=== PATIENT | male | born 1985 | race Caucasian/White ===

== ENCOUNTER 2019-01-09 18:02 | Emergency (ER) | payer BC ==
--- NOTE | 2019-01-09 19:33 | EDM.PDOC ---
ED HPI GENERAL MEDICAL PROBLEM - General Chief Complaint: Lower Extremity Injury/Pain Stated Complaint: RIGHT ANKLE/FOOT INJURY Time Seen by Provider: 01/09/19 18:18 Source of Information: Reports: Patient, RN Notes Reviewed - History of Present Illness INITIAL COMMENTS - FREE TEXT/NARRATIVE: 33-year-old male comes in with right distal lower leg discomfort and right ankle discomfort. This all started about 2 weeks ago. He had been running about 3 miles 3 times a week and doing fine. Than one evening he ran about 10 miles and then ran again the next day with subsequent onset of pain right lower leg, right ankle. That was about 2 weeks ago and he continues to have continued discomfort with walking, much more severe if he attempts to run. At rest that can be a mild ache but nothing real bothersome. No other acute injury other than repetitive stress that he can think of. 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 [No Known Home Meds] 01/09/19 [History] Past Medical History - Past Health History Medical/Surgical History: Denies Medical/Surgical History Social & Family History - Family History Family Medical History: Noncontributory - Tobacco Use Smoking Status *Q: Never Smoker Second Hand Smoke Exposure: No - Caffeine Use Caffeine Use: Reports: Coffee - Recreational Drug Use Recreational Drug Use: No Review of Systems - Review of Systems Review Of Systems: See Below Constitutional: Reports: No Symptoms Respiratory: Reports: No Symptoms Cardiovascular: Reports: No Symptoms GI/Abdominal: Reports: No Symptoms Musculoskeletal: Reports: Joint Pain (Pain right distal lower leg and right ankle) Skin: Reports: No Symptoms Neurological: Reports: No Symptoms ED EXAM, GENERAL - Physical Exam Exam: See Below General Appearance: Alert, No Apparent Distress Head: Atraumatic Neck: Supple Respiratory/Chest: No Respiratory Distress Extremities: Other (Very mild tenderness of the distal lower anterior and lateral leg, very mild tenderness right lateral ankle. Both swelling. Medial leg and ankle nontender. Foot totally nontender and without swelling.) Course - Vital Signs Last Recorded V/S: Last Vital Signs Temp 97.9 F 01/09/19 18:16 Pulse 55 L 06/22/19 18:16 Resp 14 01/09/19 18:16 BP 141/74 H 01/09/19 18:16 Pulse Ox 100 01/09/19 18:16 - Orders/Labs/Meds Orders: Active Orders 24 hr Category Date Time Status Tibia Fibula Rt [CR] Stat Exams 01/09/19 18:37 Taken Durable Medical Equipment for Discharge [DME for Oth 01/09/19 19:28 Ordered Discharge] [COMM] Stat Durable Medical Equipment for Discharge [DME for Oth 01/09/19 19:30 Ordered Discharge] [COMM] Stat - Re-Assessments/Exams Free Text/Narrative Re-Assessment/Exam: 01/09/19 19:37 X-rays of the leg do show mild increased density of the formerly close growth plate area right distal lateral tibia. This could possibly be a partially healed stress fracture. I discussed this possibility with patient. For now will have him use an Joo wrap and also put him on crutches. I will have him call the ED Friday when I am next working for radiology report. Departure - Departure Time of Disposition: 19:30 Disposition: Home, Self-Care 01 Condition: Fair Clinical Impression: Leg pain, right - Discharge Information Referrals: Malcolm Bartlett MD [Primary Care Provider] - Forms: ED Department Discharge Additional Instructions: Joo wrap right ankle and distal right lower leg, ice packs and elevation as needed, crutches, keep nonweightbearing right ankle and leg as best you can. Call ED Friday any time after 8:00 for radiology results. Ask to speak to Dr Jimenez, call [phone]. Alternate Tylenol and ibuprofen as needed for severe discomfort. - My Orders Last 24 Hours: My Active Orders 01/09/19 18:37 Tibia Fibula Rt [CR] Stat 01/09/19 19:28 Durable Medical Equipment for Discharge [DME for Discharge] [COMM] Stat 01/09/19 19:30 Durable Medical Equipment for Discharge [DME for Discharge] [COMM] Stat - Assessment/Plan Last 24 Hours: My Active Orders 01/09/19 18:37 Tibia Fibula Rt [CR] Stat 01/09/19 19:28 Durable Medical Equipment for Discharge [DME for Discharge] [COMM] Stat 01/09/19 19:30 Durable Medical Equipment for Discharge [DME for Discharge] [COMM] Stat
--- NOTE | 2019-01-11 11:06 | CR ---
Right tibia and fibula: AP and lateral views of the right tibia and fibula were obtained. Comparison: No previous study. No discrete fracture or other bony abnormality is identified. Impression: 1. No abnormality is appreciated on two-view right tibia and fibula exam. Diagnostic code #1
== END 2019-01-09 19:46 | disposition home or self-care (01) ==
LOC: JD.ED 18:02
DX: M79.661 Pain in right lower leg (principal); M25.571 Pain in right ankle and joints of right foot; Z88.1 Allergy status to other antibiotic agents
CPT/HCPCS: 73590-26-RT; 73590-RT; 99283-25

== ENCOUNTER 2021-04-05 13:21 | Emergency (ER) | payer BC, OTHER ==
[2021-04-05] MEDS ORDERED: Sodium Chloride 0.9% 1,000 ML IV STA (15:21)
[2021-04-05] MEDS ORDERED: Sodium Chloride 0.9% 10 ML Syringe FLUSH PRN (15:21)
[2021-04-05] MEDS ORDERED: Ondansetron 4 MG/2 ML SDV IVPUSH ONE (15:48)
[2021-04-05] MEDS ORDERED: Ketorolac 30 MG/ML SDV IVPUSH ONE (15:50)
--- NOTE | 2021-04-05 16:22 | EDM.PDOC ---
ED HPI GENERAL MEDICAL PROBLEM - General Chief Complaint: Gastrointestinal Problem Stated Complaint: COVID + Time Seen by Provider: 04/05/21 15:12 Source of Information: Reports: Patient, RN Notes Reviewed History Limitations: Reports: No Limitations - History of Present Illness INITIAL COMMENTS - FREE TEXT/NARRATIVE: Patient is a 35-year-old male presenting to the emergency department with complaints of nausea, vomiting, migraines, and body aches. Reports symptoms began last Friday. He tested positive for Covid on Friday. Prior to coming to ER, he states he had a near syncopal episode in the shower. He was able to sit down and did not lose consciousness. He has had no respiratory symptoms besides a very mild cough. Denies any chest pain or shortness of breath. He has had no diarrhea. Patient reports he has a long history of migraines. Headache is not present at this time. He took Excedrin Migraine earlier in the morning which she states upset his stomach because he has not been eating much. Headache Pain Score (Numeric/FACES): 8 - Related Data Allergies Allergy/AdvReac Type Severity Reaction Status Date / Time amoxicillin Allergy Cannot Verified 04/05/21 15:17 Remember Home Meds: Home Meds Ondansetron [Zofran ODT] 4 mg PO Q6H PRN #10 tab.dis 04/05/21 [Rx] Past Medical History - Past Health History Medical/Surgical History: Denies Medical/Surgical History Social & Family History - Family History Family Medical History: No Pertinent Family History - Tobacco Use Tobacco Use Status *Q: Never Tobacco User - Caffeine Use Caffeine Use: Reports: Coffee - Recreational Drug Use Recreational Drug Use: No ED ROS GENERAL - Review of Systems Review Of Systems: See Below Constitutional: Reports: No Symptoms. Denies: Fever HEENT: Reports: No Symptoms Respiratory: Reports: No Symptoms. Denies: Shortness of Breath, Cough Endocrine: Reports: No Symptoms GI/Abdominal: Reports: Nausea, Vomiting. Denies: Abdominal Pain, Diarrhea : Reports: No Symptoms Musculoskeletal: Reports: Other (Generalized body aches) Skin: Reports: No Symptoms Neurological: Reports: Dizziness, Headache Psychiatric: Reports: No Symptoms Hematologic/Lymphatic: Reports: No Symptoms Immunologic: Reports: No Symptoms ED EXAM, GI/ABD - Physical Exam Exam: See Below Exam Limited By: No Limitations General Appearance: Alert, WD/WN, No Apparent Distress Head: Atraumatic, Normocephalic Respiratory/Chest: No Respiratory Distress, Lungs Clear, Normal Breath Sounds, No Accessory Muscle Use, Chest Non-Tender Cardiovascular: Normal Peripheral Pulses, Regular Rate, Rhythm, No Edema, No Gallop, No JVD, No Murmur, No Rub GI/Abdominal Exam: Normal Bowel Sounds, Soft, Non-Tender, No Organomegaly, No Distention, No Abnormal Bruit, No Mass, Pelvis Stable Neurological: Alert, Oriented, CN II-XII Intact, Normal Cognition, Normal Gait, Normal Reflexes, No Motor/Sensory Deficits Psychiatric: Normal Affect, Normal Mood Skin Exam: Warm, Intact, Normal Color, No Rash Course - Vital Signs Last Recorded V/S: Last Vital Signs Temp 99.2 F 04/05/21 15:14 Pulse 59 L 04/05/21 17:00 Resp 16 04/05/21 17:00 BP 106/61 04/05/21 15:14 Pulse Ox 99 04/05/21 17:00 - Orders/Labs/Meds Orders: Active Orders 24 hr Category Date Time Status Peripheral IV Insertion Adult [OM.PC] Stat Oth 04/05/21 15:21 Ordered Labs: Laboratory Tests 04/05/21 04/05/21 Range/Units 15:30 15:30 WBC 4.62 (4.23-9.07) K/mm3 RBC 4.73 (4.63-6.08) M/mm3 Hgb 14.7 (13.7-17.5) gm/dl Hct 42.8 (40.1-51.0) % MCV 90.5 (79.0-92.2) fl MCH 31.1 (25.7-32.2) pg MCHC 34.3 (32.2-35.5) g/dl RDW Std Deviation 37.3 (35.1-43.9) fL Plt Count 117 L (163-337) K/mm3 MPV 11.4 (9.4-12.3) fl Neut % (Auto) 54.7 (34.0-67.9) % Lymph % (Auto) 27.1 (21.8-53.1) % [place] % (Auto) 18.2 H (5.3-12.2) % Eos % (Auto) 0 L (0.8-7.0) Baso % (Auto) 0.0 L (0.1-1.2) % Neut # (Auto) 2.53 (1.78-5.38) K/mm3 Lymph # (Auto) 1.25 L (1.32-3.57) K/mm3 [place] # (Auto) 0.84 H (0.30-0.82) K/mm3 Eos # (Auto) 0.00 L (0.04-0.54) K/mm3 Baso # (Auto) 0.00 L (0.01-0.08) K/mm3 Sodium 135 L (136-145) mEq/L Potassium 4.2 (3.5-5.1) mEq/L Chloride 101 (98-107) mEq/L Carbon Dioxide 31 (21-32) mEq/L Anion Gap 7.2 (5-15) BUN 15 (7-18) mg/dL Creatinine 1.2 (0.7-1.3) mg/dL Est Cr Clr Drug Dosing 93.91 mL/min Estimated GFR (MDRD) > 60 (>60) mL/min BUN/Creatinine Ratio 12.5 L (14-18) Glucose 98 (70-99) mg/dL Calcium 8.5 (8.5-10.1) mg/dL Total Bilirubin 0.4 (0.2-1.0) mg/dL AST 19 (15-37) U/L ALT 23 (16-63) U/L Alkaline Phosphatase 57 (46-116) U/L Total Protein 6.9 (6.4-8.2) g/dl Albumin 3.6 (3.4-5.0) g/dl Globulin 3.3 gm/dL Albumin/Globulin Ratio 1.1 (1-2) Meds: Medications Discontinued Medications Generic Name Dose Route Start Last Admin Trade Name Freq PRN Reason Stop Dose Admin Sodium Chloride 1,000 mls @ 999 mls/hr 04/05/21 15:21 04/05/21 15:31 Normal Saline IV 04/05/21 16:21 999 mls/hr NOW STA Administration Ketorolac Tromethamine 30 mg 04/05/21 15:50 04/05/21 16:36 Ketorolac 30 Mg/Ml Sdv IVPUSH 04/05/21 15:51 30 mg ONETIME ONE Administration Ondansetron HCl 4 mg 04/05/21 15:48 04/05/21 16:37 Ondansetron 4 Mg/2 Ml Sdv IVPUSH 04/05/21 15:49 4 mg ONETIME ONE Administration Sodium Chloride 10 ml 04/05/21 15:21 04/05/21 15:31 Sodium Chloride 0.9% 10 Ml Syringe FLUSH 10 ml ASDIRECTED PRN Administration Keep Vein Open - Re-Assessments/Exams Free Text/Narrative Re-Assessment/Exam: Patient is a 35-year-old male presenting to the emergency department with complaints of nausea, vomiting, migraine, and body aches. Symptoms began Friday, tested Covid positive on Friday. Reports having a near syncopal episode in the shower prior to coming to ER. Reports very mild cough but denies shortness of breath. Exam is unremarkable. I have ordered blood work. We will give him a 1 L bolus of normal saline, Zofran for nausea, and Toradol for pain. 04/05/21 16:48 Patient is feeling somewhat better after the IV fluids and nausea medication. Hematology is unremarkable. He will be discharged home with prescription for Zofran. Recommend clear liquid diet until symptoms improve and then advance as tolerated. Discussed return precautions. Discharge instructions as documented. Departure - Departure Time of Disposition: 16:49 Disposition: Home, Self-Care 01 Condition: Good Clinical Impression: COVID-19 Nausea & vomiting Qualifiers: Vomiting type: unspecified Vomiting Intractability: non-intractable Qualified Code(s): R11.2 - Nausea with vomiting, unspecified - Discharge Information *PRESCRIPTION DRUG MONITORING PROGRAM REVIEWED*: No *COPY OF PRESCRIPTION DRUG MONITORING REPORT IN PATIENT NATY: No Prescriptions: Ondansetron [Zofran ODT] 4 mg PO Q6H PRN #10 tab.dis PRN Reason: Nausea/Vomiting Instructions: COVID-19 Referrals: Malcolm Bartlett MD [Primary Care Provider] - Forms: ED Department Discharge Additional Instructions: You were seen in the emergency department today for headaches, nausea, vomiting, and an episode of dizziness with a known diagnosis of COVID-19. Blood work was completed and found to be normal. While in the ER, you received IV fluids, Zofran for nausea, and Toradol for pain. Prescription for Zofran for nausea has been sent to your pharmacy. Use this medication as prescribed. Recommend clear liquid diet for the next few days and then slowly advance as tolerated. If you experience any new or worsening symptoms of concern, please do not hesitate to return to the emergency department for reevaluation. Sepsis Event Note (ED) - Evaluation Sepsis Screening Result: No Definite Risk - Focused Exam Vital Signs: Vital Signs Temp Pulse Resp BP Pulse Ox 04/05/21 17:00 59 L 16 99 04/05/21 15:14 99.2 F 54 L 16 106/61 96 - My Orders Last 24 Hours: My Active Orders 04/05/21 15:21 Peripheral IV Insertion Adult [OM.PC] Stat - Assessment/Plan Last 24 Hours: My Active Orders 04/05/21 15:21 Peripheral IV Insertion Adult [OM.PC] Stat
== END 2021-04-05 17:00 | disposition home or self-care (01) ==
LOC: JD.ED 13:21
DX: U07.1 COVID-19 (principal); R11.2 Nausea with vomiting, unspecified; Z88.0 Allergy status to penicillin
CPT/HCPCS: 36415; 80053; 85025; 96374; 96375; 99284; J1885; J2405; J7030; 99283